=== PATIENT | female | born 1985 | race Caucasian/White ===

== ENCOUNTER 2018-08-01 15:02 | Emergency (ER) | payer OTHER ==
[~2018-08-01] VITALS: Ht 177.8 cm; Wt 77.1 kg
[~2018-08-01 15:02] MED LIST: AMOXICILLIN 50500 MG PO; AUGMENTIN 500-1 EACH PO; BACTRIM DS TAB1 EACH PO; HYDROCODON-ACE1 EAC7 PO; NOHOMEMEDICATIONS; PYRIDIUM200 MG PO; ZOFRAN4 MG PO
[2018-08-01 15:36] LABS: ABSOLUTE BASOPHILS 0.1 thou/uL (0.0-0.2); ABSOLUTE EOSINOPHILS 0.3 thou/uL (0.0-0.7); ABSOLUTE LYMPHOCYTES 2.5 thou/uL (0.8-5.3); ABSOLUTE MONOCYTES 0.6 thou/uL (0.0-1.2); ABSOLUTE NEUTROPHILS 6.8 thou/uL (1.6-8.1); BASOPHILS 1.3 %; EOSINOPHILS 3.1 %; HEMATOCRIT 40.2 % (37.0-47.0); HEMOGLOBIN 13.7 gm/dL (12.0-15.0); LYMPHOCYTES 24.2 %; MCH 30.1 pg (26.0-34.0); MCHC 34.1 g/dL (28.0-37.0); MCV 88.4 fL (80.0-100.0); MONOCYTES 6.1 %; MPV 9.1 fl. (7.2-11.1); NUCLEATED RBCS 0 /100WBC; PLATELET COUNT* 259 thou/uL (150-400); POLYS 65.3 %; RBC 4.55 mil/uL (4.20-5.00); WBC 10.4 thou/uL (4.0-11.0)
[2018-08-01 15:47] LABS: ANION GAP 12 mmol/L (7-16); BUN 13 mg/dL (7-18); CALCIUM 8.6 mg/dL (8.5-10.1); CHLORIDE 109 mmol/L (98-107); CO2 22 mmol/L (21-32); CREATININE 0.9 mg/dL (0.6-1.3); GLUCOSE 90 mg/dL (70-99); SODIUM 143 mmol/L (136-145)
[2018-08-01 15:59] LABS: ALBUMIN 3.6 g/dL (3.4-5.0); ALKALINE PHOSPHATASE 50 U/L (46-116); LIPASE 101 U/L (73-393); MAGNESIUM 1.6 mg/dL (1.8-2.4); NT-PRO BRAIN NAT PEPTIDE 58 pg/mL (<300); SGOT 20 U/L (15-37); SGPT 20 U/L (30-65); TOTAL BILIRUBIN 0.3 mg/dL (<0.1-1.0); TOTAL PROTEIN 6.6 g/dL (6.4-8.2); TROPONIN-I LEVEL <0.06 ng/mL (<0.06)
[2018-08-01 16:47] LABS: URINE BILIRUBIN NEGATIVE (Negative); URINE BLOOD 3+ (Negative); URINE CLARITY SL CLOUDY; URINE COLOR YELLOW; URINE GLUCOSE-RANDOM NEGATIVE (Negative); URINE KETONES NEGATIVE (Negative); URINE LEUKOCYTES-REFLEX NEGATIVE (Negative); URINE NITRITE-REFLEX NEGATIVE (Negative); URINE PROTEIN 2+ (Negative); URINE SPECIFIC GRAVITY <= 1.005 (1.005-1.030); URINE UROBILINOGEN 0.2 E.U./dl (0.2-1.0)
[2018-08-01 17:02] LABS: AMP/METHAMP Negative (Negative); BARBITURATES Negative (Negative); BENZODIAZEPINES Negative (Negative); COCAINE Negative (Negative); METHADONE Negative (Negative); OPIATES Negative (Negative); PCP Negative (Negative); THC Negative (Negative)
[2018-08-01 17:03] LABS: SQUAMOUS >10 Many /LPF (0-3); URINE RBC >20 Many /HPF (0-2)
[2018-08-01 17:04] LABS: CRYSTALS None Seen /LPF (None Seen); URINE WBC-REFLEX None Seen /HPF (0-5)
[2018-08-01 17:05] LABS: BACTERIA-REFLEX 1-9 Few /HPF (None Seen); CASTS None Seen /LPF (None Seen); MUCUS None Seen strn/LPF (None Seen)
[2018-08-01] MEDS ORDERED: ATIVAN1 MG PO (17:35)
[2018-08-01] MEDS ORDERED: ATIVAN1 M1 PO (20:03)
[2018-08-01 20:05] VITALS: BP 119/72
--- NOTE | 2018-08-03 12:37 | EKG ---
[place] [id number] ELECTROCARDIOGRAM REPORT Name: DIONISIO THOMPSON Room: [facility]#: [id number] Admission: 08/01/18 Attend Phys: Discharge: 08/01/18 Date of : 89 Report #: [id number] THIS REPORT FOR: //name// [facility] ED Test Date: 2018-08-01 Test Time: 15:08:37 Pat Name: DIONISIO THOMPSON Department: Room: Gender: F Site Surveyor: Sachin RIGGS : 1985 Requested By: Hossein Siddiqui Order Number: [id number] MD: Manuelito Lee Measurements Intervals [place] Rate: 146 P: 79 [place]: 125 QRS: 42 QRSD: 106 T: 16 QT: 272 QTc: 424 Interpretive Statements Sinus tachycardia Probable left atrial enlargement Artifact in lead(s) I,II,III,aVR,aVL,aVF,V1,V2,V3,V4,V5,V6 and baseline wander in lead(s) II,V1,V2,V3,V4,V5,V6 No previous ECG available for comparison Electronically Signed On 08-03-2018 12:36:56 CDT by Manuelito Lee [email or web address] <ELECTRONICALLY SIGNED> By: Manuelito Lee MD, FAC 08/03/18 1236 [id number] Manuelito Lee MD, [facility] /EPI
== END 2018-08-01 20:11 | disposition home or self-care (01) ==
LOC: M.ERS 15:02
PROVIDERS: Emergency Medicine Emergency Medical Services
DX: R07.89 Other chest pain (principal); F17.210 Nicotine dependence, cigarettes, uncomplicated; Z88.1 Allergy status to other antibiotic agents; Z88.8 Allergy status to other drugs, medicaments and biological substances; Z88.2 Allergy status to sulfonamides; Z98.890 Other specified postprocedural states; Z90.49 Acquired absence of other specified parts of digestive tract